=== PATIENT | female | born 1970 | race Caucasian/White ===

== ENCOUNTER 2017-07-06 07:38 | Day surgery (SDC) | payer OTHER ==
[2017-07-06] VITALS (8 sets, daily range): BP systolic 95–131; BP diastolic 52–86; PULSE 61–83; RESP 16–18; TEMP 94–97.9; O2SAT 92–97
[~2017-07-06] VITALS: Ht 160 cm; Wt 84.1 kg
[~2017-07-06 07:38] MED LIST: DICY1TAB26 PO; FLUO-1 PO; LISI10 PO; OMEP20TA39 PO; PREM1.25 PO; TOFA5TAB
[2017-07-06] MEDS ORDERED: BUPR150T12 PO (09:00)
[2017-07-06] MEDS ORDERED: LISI10TA3 PO (09:00)
[2017-07-06] MEDS ORDERED: FOLI1TAB6 PO (09:00)
[2017-07-06] MEDS ORDERED: IBUP400T20 PO (09:00)
[2017-07-06] MEDS ORDERED: METH2.5T PO (09:00)
[2017-07-06] MEDS ORDERED: PRIL20TA2 PO (09:00)
[2017-07-06] MEDS ORDERED: METF500T PO (09:00)
[2017-07-06] MEDS ORDERED: ACET-822 PO (09:00)
[2017-07-06] MEDS ORDERED: fentaNYL CITRATE 250 MCG/5 ML AMP ONE (09:43)
[2017-07-06] MEDS ORDERED: MIDAZOLAM HCL 2 MG/2 ML VIAL ONE (09:43)
[2017-07-06] MEDS ORDERED: LIDOCAINE HCL 1% 20 ML VIAL ONE (09:46)
--- NOTE | 2017-07-06 11:53 | RADRPT ---
EXAM DATE/TIME: 07/06/2017 10:15 [place] COMPARISON: No previous studies available for comparison. INDICATIONS : Fatty liver; function. SEDATION TIME: 15 minutes BIOPSY SITE: liver MEDICATION(S): 1.) 2 mg midazolam (Versed) IV 2.) 100 mcg fentanyl (Sublimaze) IV DEVICE(S): 1.) 18 gauge Core biopsy needle MEDICAL HISTORY : None. SURGICAL HISTORY : None. ENCOUNTER: Initial ACUITY: 1 day PAIN SCORE: 0/10 LOCATION: LIVER A total of one core specimen(s) were obtained and sent to the laboratory for pathologic evaluation. PROCEDURE: 1. CT guided liver biopsy. 2. Conscious sedation with continuous EKG and oximetry monitoring. 3. EKG and oximetry remained stable throughout the procedure. Prior to the procedure informed consent was obtained. Any appropriate prior imaging studies were rev iewed. Using automated exposure control and adjustment of the mA and/or kV according to patient size, radiat ion dose was kept as low as reasonably achievable to obtain optimal diagnostic quality images. DICOM format image data is available electronically for review and comparison. The site was prepped in a sterile fashion. Full sterile technique was used, including cap, mask, karen rile gloves and gown and a large sterile sheet. Hand hygiene and 2% chlorhexidine and/or betadine/al cohol prep was utilized per protocol for cutaneous antisepsis. The skin and subcutaneous tissues wer e infiltrated with local anesthetic solution. With CT guidance the previously identified target was localized. Biopsy was performed using the presc ribed needle as above. Adequate hemostasis was obtained with compression at the puncture site. Follow-up CT scan reveals no hemorrhage. The patient tolerated the procedure well and there were no complications. The patient was returned to the Radiology Outpatient Unit in stable condition. CONCLUSION: Uncomplicated CT guided biopsy. Adam Conteh MD FACR on July 06, 2017 at 11:51 Board Certified Radiologist. This report was verified electronically.
== END 2017-07-06 14:45 | disposition home or self-care (01) ==
LOC: HRAD 07:38 → HRIP 07:41 → HRAD 14:45
DX: K76.0 Fatty (change of) liver, not elsewhere classified (principal)
CPT/HCPCS: 47000; 77012; 88307; 88313; J2250; J3010